=== PATIENT | male | born 1975 | race Caucasian/White ===

== ENCOUNTER → 2017-04-09 | Outpatient (CLI) | payer OTHER ==
--- NOTE | 2017-04-09 14:00 | DI ---
History: Acute low back pain, unspecified back pain laterally, with sciatica Previous no previous back films available for comparison Findings: No compression fracture. No spondylolisthesis. No intervertebral disc space narrowing. No pars interarticularis defects are demonstrated SI joints unremarkable No significant degenerative changes Impression: Unremarkable plain film study of the lumbar spine
--- NOTE | 2017-04-09 14:08 | DI ---
History: right ankle pain Comparison: April 05, 2017 Findings: There is a nondisplaced amount comminuted fracture extending from the distal tibial diaphysis through the plafond, and through the medial malleolus. The non-stressed mortise is normal in alignment. Ther e've been no significant changes in fracture alignment since April 05, 2017. Impression Nondisplaced fracture distal tibia
== END ==
LOC: ORTHO 10:02
PROVIDERS: ATTEND Orthopaedic Surgery
DX: M25.571 Pain in right ankle and joints of right foot (principal); M54.5 Low back pain; S82.54XA Nondisplaced fracture of medial malleolus of right tibia, initial encounter for closed fracture; W17.89XA Other fall from one level to another, initial encounter; Y93.H2 Activity, gardening and landscaping; Y92.098 Other place in other non-institutional residence as the place of occurrence of the external cause
CPT/HCPCS: 72100; 73610